=== PATIENT | female | born 1980 | race Caucasian/White ===

== ENCOUNTER 2017-02-21 04:33 | Day surgery (SDC) | payer BC ==
[~2017-02-21] VITALS: Ht 167.6 cm; Wt 63.5 kg
--- NOTE | ~2017-02-21 | OP ---
Record Of Operation [facility] [address] [place]. [address] NAME: VILMA TOLEDO : 82 STATUS : REG [facility] PAT#: [id number] AGE: 36 ADM/REG DATE : 02/21/17 MR#: [id number] REPORT SERV DATE: 02/21/17 DICTATED BY: NNEKA DIEGO II DATE: 02/21/17 REPORT STATUS : Draft TRANSCRIBED BY: MODDave DATE: 02/21/17 DATE OF PROCEDURE: 02/21/2017 PREOPERATIVE DIAGNOSES: 1. Left lower extremity radiculopathy. 2. Moderate to severe degenerative disk disease, L5-S1. 3. Herniated nucleus pulposus, L5-S1. POSTOPERATIVE DIAGNOSES: 1. Left lower extremity radiculopathy. 2. Moderate to severe degenerative disk disease, L5-S1. 3. Herniated nucleus pulposus, L5-S1. PROCEDURES: 1. Left L5-S1 microdiskectomy. 2. Use of the microscope and stereotactic spinal imaging. FLUIDS: 1300 mL LR. ESTIMATED BLOOD LOSS: 10 mL. DRAINS: None. COMPLICATIONS: None. ANTIBIOTIC: Preoperatively. FINDINGS: Large contained fragment. PREOPERATIVE HISTORY: A friendly 36-year-old female, who works at [employer] in [facility] [facility], who reports a severe buttock and leg pain. She was found to have classic radiculopathy with a large L5-S1 herniated nucleus pulposus. She fortunately is not having any significant discogenic back pain at this point. We discussed the pros and cons of continuing nonoperative care versus surgery. She was miserable. We discussed the rates of success versus failure of the surgery to decrease the leg pain. We discussed the likelihood of continuing numbness and tingling however. We discussed the risks which include, but not limited to recurrent piece of disk herniating. We discussed other risks, such as infection, abscess, CSF leak, bleeding, and spinal fluid leaks. We discussed the potential need for additional surgery down the road if another piece of herniated and/or she develops significant back pain. We discussed even the possibility of fusion or disk replacement down the road should her symptoms dictate such a procedure. DESCRIPTION OF PROCEDURE: After informed consent was obtained, the patient was brought to the operating room at her request, and general anesthesia was achieved. She was placed in prone position. The back was prepped and draped in a sterile fashion. The stereotactic spinal pin was placed into the right iliac crest and the intraoperative CT scan was Record Of Operation [address] [address] NAME: VILMA TOLEDO : 82 STATUS : REG [facility] [place] PAT#: [id number] AGE: 36 ADM/REG DATE : 02/21/17 MR#: [id number] REPORT SERV DATE: 02/21/17 DICTATED BY: NNEKA DIEGO II DATE: 02/21/17 REPORT STATUS : Draft TRANSCRIBED BY: MODDave DATE: 02/21/17 completed following placement of the stereotactic pin into the right iliac crest. Stereotactic guidance was then used throughout the remainder of the case. Next, the minimally invasive incision was performed on the left at L5-S1, and the quadrant retractor was placed. The microscope was brought into place, and under microscopic visualization with the assistance of stereotactic guidance, the laminotomy was performed with a high-speed jessica, the Kerrison rongeurs, and the curettes. The ligamentum flavum was detached from the undersurface of the facet. Approximately 25% of the facet was now removed followed by identification of the S1 nerve root. The S1 nerve root was found to be significantly edematous. The edema was very obvious. The dura was also exposed on this left side. Next, the S1 nerve root was gently retracted and a large focal contained fragment was identified. There was a small rent in the annulus and we were able to penetrate that with the short ball-tipped probe. This allowed then several large fragments to be delivered from underneath the annulus. This allowed immediate decompression of the S1 nerve root. The area was now irrigated. No other fragments were found in the canal of the foramen. Bipolar electrocautery was used followed by irrigation. Next, we placed 40 mg of Depo-Medrol over the nerve root secondary to its edema. Standard closure was performed. The patient was then extubated, and transferred to the PACU in stable condition. I discussed restrictions with her and her fiance Kaushik preoperatively. I spoke with her fiance postoperatively and discussed with him the findings as well as again the plan for going forward. She is going to take short-term disability and hopefully return to work six to eight weeks from now. AVIS/COMFORT RAIN: 02/21/2017 09:57:56 Nneka Diego II, M.D. / [id number] CC: Nneka Diego II, M.D.
[~2017-02-21 04:33] MED LIST: ACET500CAP PO; NEUR300 PO
== END 2017-02-21 13:00 | disposition home or self-care (01) ==
LOC: SDC 04:33
PROVIDERS: Orthopaedic Surgery
PROC: 01NB0ZZ Release Lumbar Nerve, Open Approach (ICD-10-PCS; principal; 2017-02-21 05:45)
DX: M51.17 Intervertebral disc disorders with radiculopathy, lumbosacral region (principal); K21.9 Gastro-esophageal reflux disease without esophagitis; Z88.0 Allergy status to penicillin; Z88.2 Allergy status to sulfonamides; Z87.440 Personal history of urinary (tract) infections; Z98.890 Other specified postprocedural states
CPT/HCPCS: 84703; 88304; 88311; A9270-GY; J0690; J1030; J1885; J2250; J2405; J2710; J3010